=== PATIENT | female | born 1950 | race Caucasian/White ===

== ENCOUNTER 2019-11-20 08:38 | Outpatient (CLI) | payer MEDICARE, BC, SELFPAY ==
--- NOTE | 2019-11-20 08:48 | MM_ITS ---
WS: [id number] BILATERAL DIGITAL SCREENING MAMMOGRAPHY WITH CAD CLINICAL INFORMATION: SCREENING HISTORY: Screening mammogram. No current complaints. COMPARISON: 4 17,019 and 4 15,019. TECHNIQUE: Bilateral CC and MLO views. FINDINGS: The breasts are composed of heterogeneous fibroglandular density tissue, which can limit the detectio n of small underlying mass lesions. Previously described lobulated intraductal papilloma left breast has been resected. Parenchymal scarring. No suspicious mass, asymmetry, calcifications, or architectu ral distortion. No evidence of malignancy. MM/[id number] IMPRESSION: BI-RADS: 2-Benign FOLLOW UP: 1 Year Follow-up Recommend return to annual screening mammography.
== END 2019-11-20 08:39 | disposition home or self-care (01) ==
LOC: RADSHAW 08:43
PROVIDERS: PCP Family Medicine; Visit Provider Family Medicine
DX: Z12.31 Encounter for screening mammogram for malignant neoplasm of breast (principal)
CPT/HCPCS: 77067

== ENCOUNTER 2020-11-25 07:37 | Outpatient (CLI) | payer MEDICARE, BC, SELFPAY ==
--- NOTE | 2020-11-25 07:44 | MM_ITS ---
WS: [id number] Bilateral screening digital mammogram, 11/25/2020 Clinical Data: SCREENING Comparison: 11/20/2019, 06/08/2018, 06/06/2018, 09/23/2010, 12/16/2006. Findings: The breast parenchymal pattern shows fibroglandular tissue. No spiculated masses or clustered calcifi cations are seen. There are no secondary signs of carcinoma. There are lymph nodes in both axilla. MM/[id number] Impression: 1. Negative bilateral mammogram unchanged. 2. Recommend annual screening mammograms. BIRADS: 1-Negative FOLLOW UP: 1 Year Follow-up The CAD furnace checker was used.
== END 2020-11-25 07:38 | disposition home or self-care (01) ==
LOC: RADSHAW 07:42
PROVIDERS: PCP Family Medicine; Visit Provider Family Medicine
DX: Z12.31 Encounter for screening mammogram for malignant neoplasm of breast (principal)
CPT/HCPCS: 77067

== ENCOUNTER 2021-02-08 06:35 | Emergency (ER) | payer MEDICARE, BC, SELFPAY ==
[2021-02-08 06:44] VITALS: BP 184/101; PULSE 100; RESP 18; TEMP 36.8; O2SAT 99; BMI 40.2
--- NOTE | 2021-02-08 07:10 | CTR_ITS ---
PROCEDURE INFORMATION: Exam: CT Maxillofacial Without Contrast Exam date and time: 02/08/2021 7:10 AM Age: 70 years old Clinical indication: Injury or trauma; Blunt trauma (contusions or hematomas); Nose; Patient HX: PT. Fall striking face on table; Additional info: Fall/deformity to nose TECHNIQUE: Imaging protocol: Computed tomography images of the face without contrast. Total images: 243 Radiation optimization: All CT scans at this facility use at least one of these dose optimization techniques: automated exposure control; mA and/or kV adjustment per patient size (includes targeted exams where dose is matched to clinical indication); or iterative reconstruction. COMPARISON: No relevant prior studies available. RADIATION DOSE METRICS: Total DLP (mGy-cm): 693.78 FINDINGS: Orbital cavity: Orbits are normal. Globes are unremarkable. Bones/joints: Bilateral nasal bone fractures with adjacent soft tissue swelling. Long-standing deviation of the nasal septum. Paranasal sinuses: Air-fluid levels present in the maxillary sinuses bilaterally and right sphenoid sinus. Soft tissues: Unremarkable. Other findings: Streak artifact from dental amalgam. CT/CT facial bones wo con* [id number] IMPRESSION: 1. Bilateral nasal bone fractures with adjacent soft tissue swelling. 2. Air-fluid levels present in the maxillary sinuses bilaterally and right sphenoid sinus.
[2021-02-08 07:11] VITALS: BP 184/101; PULSE 100; RESP 18; TEMP 36.8; O2SAT 99
--- NOTE | 2021-02-08 07:22 | W.ED.FALL ---
HPI - Fall General: Chief Complaint: Fall Stated Complaint: nosebleed Time Seen by Provider: 02/08/21 07:01 History of Present Illness: HPI Narrative: 70-year-old presents emergency room after a fall. She stumbled over her dog and the dog fell and hit her face on some furniture. Patient has small amount of bruising obvious deformity to the nose. She denies any difficulty breathing she had no loss of consciousness. She takes aspirin daily but no other anticoagulants. MD complaint: fall Onset (ago): minute(s) Fall from: standing Fall witnessed: no Place fall occurred: home Loss of consciousness: None Prolonged down time: no Symptoms prior to fall: none Context: tripped/slipped Associated symptoms-after fall: Denies abdominal pain, chest pain, confusion, difficulty walking, headache(s), hematuria, lightheadedness, neck pain, numbness, short of breath, vertigo or weakness Review of Systems Const: Denies: fever(s), chills, body aches, change in appetite, fatigue or malaise ENMT: Reports: nasal discharge and nasal congestion; Denies: throat pain or ear or mastoid pain Card: Denies: chest pain or lightheadedness Resp: Denies: dyspnea, productive cough or non-productive cough GI: Denies: abdominal pain : Denies: hematuria Musc: Denies: neck pain Skin/Breast: Denies: rash or pruritus Neuro: Denies: headache(s), difficulty walking, vertigo or confusion Physical Exam Const: COMMON NORMALS: no acute distress GENERAL APPEARANCE: cooperative and comfortable ORIENTATION/CONSCIOUSNESS: Yes awake, Yes oriented to person, Yes oriented to place and Yes oriented to time HENMT: COMMON NORMALS: normocephalic, atraumatic, hearing grossly normal bilaterally, external ears normal, EAC's normal and TM's normal bilaterally HEAD & SCALP: normocephalic and atraumatic EXTERNAL EAR: Yes external ears normal EXTERNAL AUDITORY CANAL: EAC's normal TYMPANIC MEMBRANE: TM's normal bilaterally OTHER: Obvious deformity of the nares. There is some blood-tinged tears particularly noted in the left eye. Eye: COMMON NORMALS: Equal, round and reactive pupils present, EOMs intact bilaterally, conjunctivae normal and no scleral icterus CONJUNCTIVA: Yes conjunctivae normal PUPIL: Yes Equal, round and reactive pupils present Neck/C-Spine: COMMON NORMALS: full ROM, no lymphadenopathy, supple and no JVD Resp: COMMON NORMALS: normal respiratory effort, No retractions, No use of accessory muscles and clear to auscultation bilaterally AUSCULTATION: clear to auscultation bilaterally Cardio: COMMON NORMALS: no JVD, regular rate, regular rhythm and No murmurs present (Cardio) RATE: regular rate RHYTHM: regular rhythm GI: COMMON NORMALS: Soft to palpation and No hepatosplenomegaly present AUSCULTATION: Yes normoactive bowel sounds PALPATION: Yes Soft to palpation, No Tenderness to palpation present (GI), No Guarding due to palpation present (GI) and Yes No hepatosplenomegaly present Extremity: COMMON NORMALS: normal to inspection, capillary refill normal, no clubbing, cyanosis or edema, no calf tenderness and no pedal edema Neuro: SENSORIUM/ORIENTATION: Yes oriented to person, Yes oriented to place and Yes oriented to time Skin: COMMON NORMALS: no rashes or lesions noted GENERAL SKIN EXAM: no rashes or lesions noted Course Vital Signs: Vital signs: Vital Signs Temperature 98.3 F 02/08/21 07:11 Pulse Rate 78 02/08/21 10:16 Respiratory Rate 16 02/08/21 09:12 Blood Pressure 184/101 02/08/21 07:11 Pulse Oximetry 99 02/08/21 10:16 MDM - Fall MDM Narrative: Medical decision making narrative: Pt is awake and alert with no other significant injuries. Discharge home with plans for followup with ENT next week. Return if there are further issues. Discharge Plan Discharge Patient Disposition: Home Clinical Impression: Fracture closed, nasal bone, Acute anterior epistaxis Condition: Stable Prescriptions: New Augmentin 875-125 mg tablet 1 tab PO BID Qty: 20 RF: 0 hydrocodone-acetaminophen 5-325 mg tablet 1 tab PO Q6H PRN (Reason: pain) Qty: 15 RF: 0 Discharge Orders: Discharge ED (Routine); Ordered 02/08/21 Ordered By: Jace Rausch Referrals: Mike Loza MD [Primary Care Provider] - Discharge Diet: Usual diet Discharge Activity: Resume usual activity Patient Instructions: Opioid Safety Activity Restrictions/Additional Instructions: Avoid blowing the nose. Applied topical antibiotic in the nares with a cotton swab twice daily. service desk manager will make arrangements for you to see the ear nose and throat doctor next week. Coding Level of Care Code ED Attendance Secretary for Chg Fwd Exam Comprehensive
[2021-02-08 07:49] VITALS: PULSE 83; RESP 18; O2SAT 95
[2021-02-08 09:12] VITALS: PULSE 75; RESP 16; O2SAT 96
[2021-02-08] MEDS: oxymetazoline 0.05% Nasal Spray 15 mL 2 SPRAY NOSTRIL-B (10:15)
[2021-02-08 10:16] VITALS: PULSE 78; O2SAT 99
== END 2021-02-08 10:17 | disposition home or self-care (01) ==
PROVIDERS: Emergency Provider Family Medicine; PCP Family Medicine
DX: S02.2XXA Fracture of nasal bones, initial encounter for closed fracture (principal); W01.0XXA Fall on same level from slipping, tripping and stumbling without subsequent striking against object, initial encounter; R04.0 Epistaxis
CPT/HCPCS: 70486; 96365; 99284

== ENCOUNTER 2021-05-29 11:12 | Outpatient (CLI) | payer MEDICARE, BC, SELFPAY ==
--- NOTE | 2021-05-29 11:33 | XR_ITS ---
WS: [id number] RIGHT SHOULDER: 3 VIEW(S) TECHNIQUE: Internal and external rotation with Y view. HISTORY: R SHOULDER PAIN COMPARISON: 05/16/2015 No fracture or dislocation or soft tissue abnormality. Mild narrowing of the AC joint. There are small hypertrophic osteophytes at the AC joint and around t he humeral head. No significant progression of degeneration since 05/16/2015. Scapula is intact. The a djacent ribs are intact. XR/XR shoulder RT min 2V* [id number] IMPRESSION: Mild stable degenerative changes at the glenohumeral joint and AC joint. No fractures are identified.
== END 2021-05-29 11:13 | disposition home or self-care (01) ==
LOC: RAD 11:23
PROVIDERS: PCP Family Medicine; Visit Provider Family Medicine
DX: M25.511 Pain in right shoulder (principal)
CPT/HCPCS: 73030

== ENCOUNTER 2021-11-08 18:24 | Emergency (ER) | payer MEDICARE, BC, SELFPAY ==
[2021-11-08 18:30] VITALS: BP 194/99; PULSE 85; RESP 14; TEMP 36.5; O2SAT 99; BMI 36.6
--- NOTE | 2021-11-08 19:10 | ED_ITS ---
HPI - Extremity Problem General: Chief complaint: Extremity Problem,Nontraumatic Stated complaint: left leg pain Time Seen by Provider: 11/08/21 18:57 History of Present Illness: 71-year-old female comes in today with a ulcer to the left lower extremity that she has been doctoring with Vaseline. Patient reports she is concerned due to increased redness and tenderness of the wound surrounding the ulcer. Patient has a chronic rash and swelling to bilateral lower extremities. Most likely patient has some peripheral vascular disease and some stasis dermatitis. Patient had seen Dr. Loza at 22 September and was given a dose of Depo-Medrol which help with patient's itching. Patient has been arranged to have a follow-up with dermatology per Dr. Loza. Patient came in today for concern of infection. Patient denies fever, nausea vomiting, or diabetes. Patient reports that she only gets high blood pressure when she is around doctors. Associated symptoms: Deny fever(s) Review of Systems Const: Denies: fever(s) Musc: Reports: extremity pain Skin/Breast: Reports: new lesions Physical Exam Const: COMMON NORMALS: alert HENMT: COMMON NORMALS: normocephalic HEAD & SCALP: normocephalic Neck/C-Spine: COMMON NORMALS: full ROM Resp: COMMON NORMALS: normal respiratory effort and clear to auscultation bilaterally AUSCULTATION: clear to auscultation bilaterally Extremity: LEFT LOWER EXTREMITY: Yes lower leg (Lateral 2 cm circular lesion with 4 cm of surrounding redness.) Left lower leg: Yes inspection, Yes palpation and Yes neurovascular exam Neuro: SENSORIUM/ORIENTATION: Yes alert Skin: WOUNDS: Yes wounds noted (Ulcer to the left lower extremity) Course Vital Signs: Vital signs: Vital Signs Temperature 97.7 F 11/08/21 18:30 Pulse Rate 85 11/08/21 18:30 Respiratory Rate 14 11/08/21 18:30 Blood Pressure 194/99 11/08/21 18:30 Pulse Oximetry 99 11/08/21 18:30 Oxygen Delivery Me thod 11/08/21 18:30 MDM - Extremity (Nontraumatic) Medical Decision Making Patient comes in for concerns of changes in a ulcer to the left lower extremity. Patient reported some increased redness around the wound with some tenderness. Patient has a chronic condition of swelling in bilateral lower extremities with redness at times and occasional development of skin ulcers. Patient usually is able to manage him at home but was concerned it may be infection. Vital signs noted no fever, blood pressure was elevated. Respirations were even lungs were clear to auscultation. Skin was warm and dry. Bilateral lower extremities were slightly edematous with the left being little worse than the right but with increased redness on the left with a coin sized ulcer. Differential diagnoses include cellulitis, peripheral vascular disease, vasculitis, claudication, diabetes. Patient has good pedal pulses. I suspect patient probably has some peripheral vascular disease causing the stasis dermatitis. We will treat for infection due to the changes in the ulcer with increased redness and swelling. Patient was given a dose of methylprednisone 80 mg due to good results the last time she got it about 2 months ago for the rash and itching. Patient reported understanding and agreed to plan with need to come back for worsening symptoms such as high fever, persistent nausea and vomiting, or new concerns. Discharge Plan Discharge Patient Disposition: Home Clinical Impression: Stasis dermatitis of both legs, Infected wound Condition: Stable Prescriptions: New amoxicillin-pot clavulanate 875-125 mg tablet 1 tab PO BID Qty: 14 0RF No Action famotidine 20 mg tablet 20 mg PO BID mupirocin 2 % ointment 1 applic topical TID Qty: 22 0RF hydrocodone-acetaminophen 5-325 mg tablet 1 tab PO Q6H PRN (Reason: pain) Qty: 15 0RF Discharge Orders: Discharge ED (Routine); Ordered 11/08/21 Ordered By: Jesu Montano Referrals: Mike Loza MD [Primary Care Provider] - Discharge Diet: Usual diet Discharge Activity: Increase activity as tolerated Patient Instructions: Stasis Dermatitis (ED) Activity Restrictions/Additional Instructions: Take antibiotic as directed 1 tablet twice a day for 7 days. Use antibiotic ointment to the wound. Elevate extremity is much as possible. Use compression stockings or wraps to help with swelling control. Follow-up with primary care in 3 to 5 days for recheck. Return to ER for high fever greater than 100.4, increasing redness and swelling, or new concerns. 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
[2021-11-08] MEDS: methylPREDNISolone (DEPO) 80 MG/ML INJ 1 mL IM (19:16)
[2021-11-08] MEDS: amoxicillin-clav 875-125 mg Tablet 1 TAB PO (19:16)
[2021-11-08] MEDS: mupirocin oint 22 gm 1 APPLIC TOPICAL (19:17)
== END 2021-11-08 19:27 | disposition home or self-care (01) ==
PROVIDERS: Emergency Provider Nurse Practitioner Family; PCP Family Medicine
DX: I87.2 Venous insufficiency (chronic) (peripheral) (principal); L97.921 Non-pressure chronic ulcer of unspecified part of left lower leg limited to breakdown of skin; L08.9 Local infection of the skin and subcutaneous tissue, unspecified
CPT/HCPCS: 96372; 99284; J1040

== ENCOUNTER → 2021-11-25 08:16 | Outpatient (BNVA) | payer MEDICARE, BC, SELFPAY | PROVIDERS: PCP Family Medicine; Visit Provider Nurse Practitioner Family | DX: I96 Gangrene, not elsewhere classified (principal); L97.822 Non-pressure chronic ulcer of other part of left lower leg with fat layer exposed | CPT/HCPCS: 11042; 99213; A6021 ==

== ENCOUNTER → 2021-11-28 09:52 | Outpatient (BNVA) | payer MEDICARE, BC, SELFPAY | PROVIDERS: PCP Family Medicine; Visit Provider Nurse Practitioner Family | DX: I87.2 Venous insufficiency (chronic) (peripheral) (principal); L97.822 Non-pressure chronic ulcer of other part of left lower leg with fat layer exposed | CPT/HCPCS: 29581 ==

== ENCOUNTER → 2021-12-02 13:07 | Outpatient (BNVA) | payer MEDICARE, BC, SELFPAY | PROVIDERS: PCP Family Medicine; Visit Provider Nurse Practitioner Family | DX: I96 Gangrene, not elsewhere classified (principal); I87.2 Venous insufficiency (chronic) (peripheral); L97.822 Non-pressure chronic ulcer of other part of left lower leg with fat layer exposed | CPT/HCPCS: 11042 ==

== ENCOUNTER 2021-12-03 09:33 | Outpatient (CLI) | payer MEDICARE, BC, SELFPAY ==
--- NOTE | 2021-12-03 09:46 | MM_ITS ---
WS: [id number] DIAGNOSTIC BILATERAL DIGITAL BREAST TOMOSYNTHESIS MAMMOGRAPHY WITH CAD HISTORY: Annual evaluation. History of LEFT breast cancer. COMPARISON: None available. TECHNIQUE: Bilateral craniocaudad, mediolateral oblique, and mediolateral views are submitted with to mospaige and SM. Computer aided detection utilized. Breast composition: There are scattered areas of fibroglandular density. No suspicious masses or calc ifications. MM/[place] [id number] IMPRESSION: BI-RADS: 2-Benign FOLLOW UP: 1 Year Follow-up
== END 2021-12-03 09:34 | disposition home or self-care (01) ==
LOC: RAD 09:33
PROVIDERS: PCP Family Medicine; Visit Provider Family Medicine
DX: Z85.3 Personal history of malignant neoplasm of breast (principal)
CPT/HCPCS: 77062; 77063; 77067

== ENCOUNTER 2021-12-05 14:51 | Outpatient (CLI) | payer MEDICARE, BC, SELFPAY ==
--- NOTE | 2021-12-05 15:15 | USCV_ITS ---
LE Venous Insufficiency BILATERAL Miri Matos Age: 71 Gender: F : 1950 Exam Date: 12/05/2021 15:08 Ordering Phys: Dayanara Warren Technologist: JEB [place] [facility] [place]: H[place]ORY: Ulcers. PROCEDURES: Bilateral duplex Venous Insufficiency study of the Deep and Superficial systems was carried out according to normal protocol with the patient in supine positon for deep system and dependent position for the superficial system. FINDINGS: There is no evidence of RIGHT deep vein thrombosis. No evidence of superficial thrombosis in the RIGHT saphenous system. The RIGHT SFJ measured .75CM cm in diameter. There was no venous reflux noted in the RIGHT SFJ. The RIGHT GSV measured .6CM cm in diameter in the proximal thigh immediately distal to the SFJ. Venous reflux is demonstrated in the RIGHT greater saphenous vein with a spectral Doppler display of greater than 500 milliseconds at the level of the. No RIGHT perforating veins are noted. The RIGHT SSV measured .2CM cm in diameter, in the proximal calf immediately distal to the SPJ/thigh extension vein. Venous reflux is demonstrated in the RIGHT small saphenous vein with a spectral Doppler display of greater than 500 mlsec at the level of the proximal calf. There is no evidence of LEFT deep vein thrombosis. No evidence of superficial thrombosis in the LEFT saphenous system. Reflux is demonstrated in the deep venous system at the level of the LEFT. The LEFT SFJ measured .58CM cm in diameter. There was no venous reflux noted in the LEFT SFJ. The LEFT GSV measured .55CM cm in diameter in the proximal thigh immediately distal to the SFJ. Venous reflux is demonstrated in the LEFT greater saphenous vein with a spectral Doppler display of greater than 500 milliseconds at the level of the. No LEFT perforating veins are noted. The LEFT SSV measured .25CM cm in diameter, in the proximal calf immediately distal to the SPJ/thigh extension vein. No venous reflux noted in the LEFT small saphenous vein. CONCLUSIONS #1. No evidence of DVT in the above-mentioned identifiable veins. #2. On the right side, significant venous reflux of greater than 500 ms were noted at the saphenofemoral junction, distal to the saphenofemoral junction, proximal and mid segment of the greater saphenous vein. These venous segments are found to be measuring anywhere from 0.43 to 0.75 cm in diameter. These venous segments were more than 1 cm from the surface except the greater saphenous vein distal to the saphenofemoral junction which was less than 1 cm deep from the surface. #3. On the left side no significant venous reflux were noted either in the superficial or deep veins. Minimal reflux of less than 500 ms were noted at multiple levels. Dr Sofia Sharp MD [facility] (Electronically Signed) Final Date: 10 December 2021 00:02 S
== END 2021-12-05 14:52 | disposition home or self-care (01) ==
LOC: RAD 14:52
PROVIDERS: PCP Family Medicine; Visit Provider Nurse Practitioner Family
DX: L98.491 Non-pressure chronic ulcer of skin of other sites limited to breakdown of skin (principal); I87.8 Other specified disorders of veins
CPT/HCPCS: 93970

== ENCOUNTER → 2021-12-09 10:31 | Outpatient (BNVA) | payer MEDICARE, BC, SELFPAY | PROVIDERS: PCP Family Medicine; Visit Provider Nurse Practitioner Family | DX: I96 Gangrene, not elsewhere classified (principal); I87.2 Venous insufficiency (chronic) (peripheral); L97.822 Non-pressure chronic ulcer of other part of left lower leg with fat layer exposed | CPT/HCPCS: 11042 ==

== ENCOUNTER 2021-12-12 14:09 | Outpatient (CLI) | payer MEDICARE, BC, SELFPAY ==
--- NOTE | 2021-12-12 14:30 | USCV_ITS ---
Miri Matos Age: 71 Gender: F : 1950 Exam Date: 12/12/2021 14:19 Ordering Phys: Dayanara Warren Technologist: CT Exam Location: [facility] – [place] Indication: pvd Risk Factors: Previous Vascular Surgery: RIGHT LEFT BP: 131.0 / 80.00 BP: 121.0/ 77.00 0 0 Waveform Velocity (cm/s) Velocity (cm/s) Waveform Triphasic 103.8 Iliac Prox 93.0 Triphasic Triphasic 93.2 Iliac Mid 97.3 Triphasic Triphasic 93.5 Iliac Distal 92.1 Triphasic Triphasic 115.0 PILOT 117.2 Triphasic Triphasic 97.9 SFA Prox 95.6 Triphasic Triphasic 78.0 SFA Mid 92.9 Triphasic Triphasic SFA Dist Triphasic 79.2 86.5 Triphasic 54.9 POP 60.3 Triphasic Triphasic 83.6 PRODUCTION SPECIALIST 97.2 Triphasic Triphasic 80.7 DPA 61.2 Triphasic 1.2 BRANDON 1.1 FINDINGS Intimal thickening and scattered minimal plaques in the iliac and femoral arteries bilaterally Resting BRANDON 1.2 on the right and 1.1 on the left Normal arterial Doppler waveforms CONCLUSIONS 1. Normal resting ABIs bilaterally 2. Intimal thickening and minimal scattered plaques in the iliac and femoral arteries bilaterally 3. No significant arterial obstruction, based on the above findings Dr Sofia Sharp MD [facility] (Electronically Signed) Final Date: 12 December 2021 16:32 S
== END 2021-12-12 14:10 | disposition home or self-care (01) ==
LOC: RAD 14:09
PROVIDERS: PCP Family Medicine; Visit Provider Nurse Practitioner Family
DX: L98.491 Non-pressure chronic ulcer of skin of other sites limited to breakdown of skin (principal); R52 Pain, unspecified; I73.9 Peripheral vascular disease, unspecified
CPT/HCPCS: 93925

== ENCOUNTER → 2021-12-16 10:42 | Outpatient (BNVA) | payer MEDICARE, BC, SELFPAY | PROVIDERS: PCP Family Medicine; Visit Provider Nurse Practitioner Family | DX: I96 Gangrene, not elsewhere classified (principal); I87.2 Venous insufficiency (chronic) (peripheral); L97.822 Non-pressure chronic ulcer of other part of left lower leg with fat layer exposed | CPT/HCPCS: 11042 ==

== ENCOUNTER → 2021-12-23 10:46 | Outpatient (BNVA) | payer MEDICARE, BC, SELFPAY | PROVIDERS: PCP Family Medicine; Visit Provider Nurse Practitioner Family | DX: I96 Gangrene, not elsewhere classified (principal); I87.2 Venous insufficiency (chronic) (peripheral); L97.822 Non-pressure chronic ulcer of other part of left lower leg with fat layer exposed | CPT/HCPCS: 97597 ==

== ENCOUNTER → 2021-12-30 10:36 | Outpatient (BNVA) | payer MEDICARE, BC, SELFPAY | PROVIDERS: PCP Family Medicine; Visit Provider Nurse Practitioner Family | DX: I96 Gangrene, not elsewhere classified (principal); I87.2 Venous insufficiency (chronic) (peripheral); L97.822 Non-pressure chronic ulcer of other part of left lower leg with fat layer exposed | CPT/HCPCS: 11042; 87070; 87077; 87176; 87186; 87205 ==

== ENCOUNTER → 2022-01-06 10:46 | Outpatient (BNVA) | payer MEDICARE, BC, SELFPAY | PROVIDERS: PCP Family Medicine; Visit Provider Nurse Practitioner Family | DX: I96 Gangrene, not elsewhere classified (principal); I87.2 Venous insufficiency (chronic) (peripheral); L97.822 Non-pressure chronic ulcer of other part of left lower leg with fat layer exposed | CPT/HCPCS: 11042; A6212 ==

== ENCOUNTER → 2022-01-20 10:46 | Outpatient (BNVA) | payer MEDICARE, BC, SELFPAY | PROVIDERS: PCP Family Medicine; Visit Provider Nurse Practitioner Family | DX: I96 Gangrene, not elsewhere classified (principal); I87.2 Venous insufficiency (chronic) (peripheral); L97.822 Non-pressure chronic ulcer of other part of left lower leg with fat layer exposed | CPT/HCPCS: 15271; A6446; Q4186 ==

== ENCOUNTER → 2022-01-27 10:53 | Outpatient (BNVA) | payer MEDICARE, BC, SELFPAY | PROVIDERS: PCP Family Medicine; Visit Provider Nurse Practitioner Family | DX: I96 Gangrene, not elsewhere classified (principal); I87.2 Venous insufficiency (chronic) (peripheral); L97.822 Non-pressure chronic ulcer of other part of left lower leg with fat layer exposed | CPT/HCPCS: 15271; A6207; A6250; A6252; Q4205 ==

== ENCOUNTER → 2022-02-03 10:56 | Outpatient (BNVA) | payer MEDICARE, BC, SELFPAY | PROVIDERS: PCP Family Medicine; Visit Provider Thoracic Surgery (Cardiothoracic Vascular Surgery) | DX: I87.2 Venous insufficiency (chronic) (peripheral) (principal); I96 Gangrene, not elsewhere classified; L97.822 Non-pressure chronic ulcer of other part of left lower leg with fat layer exposed | CPT/HCPCS: 15275; A6021; A6206; A6250; Q4205 ==

== ENCOUNTER → 2022-02-10 10:50 | Outpatient (BNVA) | payer MEDICARE, BC, SELFPAY | PROVIDERS: PCP Family Medicine; Visit Provider Thoracic Surgery (Cardiothoracic Vascular Surgery) | DX: I96 Gangrene, not elsewhere classified (principal); I87.2 Venous insufficiency (chronic) (peripheral); L97.822 Non-pressure chronic ulcer of other part of left lower leg with fat layer exposed | CPT/HCPCS: 97597 ==

== ENCOUNTER → 2022-02-24 10:54 | Outpatient (BNVA) | payer MEDICARE, BC, SELFPAY | PROVIDERS: PCP Family Medicine; Visit Provider Thoracic Surgery (Cardiothoracic Vascular Surgery) | DX: I96 Gangrene, not elsewhere classified (principal); I87.2 Venous insufficiency (chronic) (peripheral); L97.822 Non-pressure chronic ulcer of other part of left lower leg with fat layer exposed | CPT/HCPCS: 97597 ==

== ENCOUNTER → 2022-03-09 11:17 | Outpatient (BNVA) | payer MEDICARE, BC, SELFPAY | PROVIDERS: PCP Family Medicine; Visit Provider Thoracic Surgery (Cardiothoracic Vascular Surgery) | DX: I96 Gangrene, not elsewhere classified (principal); I87.2 Venous insufficiency (chronic) (peripheral); L97.822 Non-pressure chronic ulcer of other part of left lower leg with fat layer exposed | CPT/HCPCS: 97597; A6212 ==

== ENCOUNTER → 2022-03-23 10:13 | Outpatient (BNVA) | payer MEDICARE, BC, SELFPAY | PROVIDERS: PCP Family Medicine; Visit Provider Thoracic Surgery (Cardiothoracic Vascular Surgery) | DX: I96 Gangrene, not elsewhere classified (principal); I87.2 Venous insufficiency (chronic) (peripheral); L97.822 Non-pressure chronic ulcer of other part of left lower leg with fat layer exposed | CPT/HCPCS: 99212; A6212 ==

== ENCOUNTER → 2022-03-30 10:53 | Outpatient (BNVA) | payer MEDICARE, BC, SELFPAY | PROVIDERS: PCP Family Medicine; Visit Provider Thoracic Surgery (Cardiothoracic Vascular Surgery) | DX: Z09 Encounter for follow-up examination after completed treatment for conditions other than malignant neoplasm (principal) | CPT/HCPCS: 99212 ==

== ENCOUNTER → 2022-09-01 11:10 | Outpatient (BNVA) | payer MEDICARE, BC, SELFPAY | PROVIDERS: PCP Family Medicine; Visit Provider Nurse Practitioner Family | DX: L57.0 Actinic keratosis (principal); L97.829 Non-pressure chronic ulcer of other part of left lower leg with unspecified severity; L81.4 Other melanin hyperpigmentation; D22.5 Melanocytic nevi of trunk; Z71.89 Other specified counseling; L85.3 Xerosis cutis | CPT/HCPCS: 17000; 17003; 99213 ==

== ENCOUNTER → 2022-09-15 11:18 | Outpatient (BNVA) | payer MEDICARE, BC, SELFPAY | PROVIDERS: PCP Family Medicine; Visit Provider Obstetrics & Gynecology | DX: N81.89 Other female genital prolapse (principal) | CPT/HCPCS: 76830; 76856 ==

== ENCOUNTER → 2023-01-04 11:31 | Outpatient (BNVA) | payer MEDICARE, BC, SELFPAY | PROVIDERS: PCP Family Medicine; Visit Provider Nurse Practitioner Family | DX: I83.009 Varicose veins of unspecified lower extremity with ulcer of unspecified site (principal); L97.829 Non-pressure chronic ulcer of other part of left lower leg with unspecified severity; L97.319 Non-pressure chronic ulcer of right ankle with unspecified severity; I87.2 Venous insufficiency (chronic) (peripheral); L57.8 Other skin changes due to chronic exposure to nonionizing radiation; L81.4 Other melanin hyperpigmentation; L03.116 Cellulitis of left lower limb; L03.115 Cellulitis of right lower limb | CPT/HCPCS: 77062; 99214; G0279 ==

== ENCOUNTER → 2023-01-12 13:46 | Outpatient (BNVA) | payer MEDICARE, BC, SELFPAY | PROVIDERS: PCP Family Medicine; Visit Provider Thoracic Surgery (Cardiothoracic Vascular Surgery) | DX: I96 Gangrene, not elsewhere classified (principal); L97.312 Non-pressure chronic ulcer of right ankle with fat layer exposed; L97.322 Non-pressure chronic ulcer of left ankle with fat layer exposed | CPT/HCPCS: 11042; 97597; 99213 ==

== ENCOUNTER → 2023-01-19 14:14 | Outpatient (BNVA) | payer MEDICARE, BC, SELFPAY | PROVIDERS: PCP Family Medicine; Visit Provider Nurse Practitioner Family | DX: I96 Gangrene, not elsewhere classified (principal); L97.312 Non-pressure chronic ulcer of right ankle with fat layer exposed; L97.322 Non-pressure chronic ulcer of left ankle with fat layer exposed | CPT/HCPCS: 97597 ==

== ENCOUNTER → 2023-01-26 13:32 | Outpatient (BNVA) | payer MEDICARE, BC, SELFPAY | PROVIDERS: PCP Family Medicine; Visit Provider Nurse Practitioner Family | DX: I96 Gangrene, not elsewhere classified (principal); L89.512 Pressure ulcer of right ankle, stage 2; L89.522 Pressure ulcer of left ankle, stage 2 | CPT/HCPCS: 11042; 87070; 87077; 87176; 87186; 87205; 99212 ==

== ENCOUNTER → 2023-02-02 13:41 | Outpatient (BNVA) | payer MEDICARE, BC, SELFPAY | PROVIDERS: PCP Family Medicine; Visit Provider Nurse Practitioner Family | DX: I96 Gangrene, not elsewhere classified (principal); I87.2 Venous insufficiency (chronic) (peripheral); L97.311 Non-pressure chronic ulcer of right ankle limited to breakdown of skin; L97.321 Non-pressure chronic ulcer of left ankle limited to breakdown of skin | CPT/HCPCS: 97597; 99213; A6210 ==

== ENCOUNTER → 2023-02-09 14:50 | Outpatient (BNVA) | payer MEDICARE, BC, SELFPAY | PROVIDERS: PCP Family Medicine; Visit Provider Thoracic Surgery (Cardiothoracic Vascular Surgery) | DX: I96 Gangrene, not elsewhere classified (principal); I87.2 Venous insufficiency (chronic) (peripheral); L97.311 Non-pressure chronic ulcer of right ankle limited to breakdown of skin; L97.321 Non-pressure chronic ulcer of left ankle limited to breakdown of skin | CPT/HCPCS: 97597; A6210; A6248 ==

== ENCOUNTER → 2023-02-16 15:20 | Outpatient (BNVA) | payer MEDICARE, BC, SELFPAY | PROVIDERS: PCP Family Medicine; Visit Provider Nurse Practitioner Family | DX: I96 Gangrene, not elsewhere classified (principal); I87.2 Venous insufficiency (chronic) (peripheral); L97.311 Non-pressure chronic ulcer of right ankle limited to breakdown of skin; L97.321 Non-pressure chronic ulcer of left ankle limited to breakdown of skin | CPT/HCPCS: 97597; A6210 ==

== ENCOUNTER → 2023-02-23 15:02 | Outpatient (BNVA) | payer MEDICARE, BC, SELFPAY | PROVIDERS: PCP Family Medicine; Visit Provider Nurse Practitioner Family | DX: I96 Gangrene, not elsewhere classified (principal); I87.2 Venous insufficiency (chronic) (peripheral); L97.311 Non-pressure chronic ulcer of right ankle limited to breakdown of skin; L97.321 Non-pressure chronic ulcer of left ankle limited to breakdown of skin | CPT/HCPCS: 97597; A6210 ==

== ENCOUNTER 2023-02-25 11:54 | Outpatient (CLI) | payer MEDICARE, BC, SELFPAY ==
--- NOTE | 2023-02-25 12:15 | US_ITS ---
WS: [id number] ULTRASOUND SOFT TISSUES RIGHT posterior thorax. HISTORY: soft tissue growth on back COMPARISON: None available. TECHNIQUE: 2-D and color Doppler imaging is submitted. Ultrasound is directed over the RIGHT upper thorax near the scapula in the area of concern. There is an elongated area of intermediate echogenicity measuring 1.1 x 6.3 cm which is probably a small lipom a. This is nearly isoechoic to the adjacent soft tissues. No increased vascularity. This is asymmetri c to the LEFT upper thorax. IMPRESSION: Elongated intermediate hypoechoic mass corresponds to the palpable abnormality and is probably a lipo ma.
== END 2023-02-25 11:55 | disposition home or self-care (01) ==
LOC: RAD 11:55
PROVIDERS: PCP Family Medicine; Visit Provider Clinical Nurse Specialist Adult Health
DX: D17.1 Benign lipomatous neoplasm of skin and subcutaneous tissue of trunk (principal); D49.2 Neoplasm of unspecified behavior of bone, soft tissue, and skin
CPT/HCPCS: 76882

== ENCOUNTER → 2023-03-02 13:48 | Outpatient (BNVA) | payer MEDICARE, BC, SELFPAY | PROVIDERS: PCP Family Medicine; Visit Provider Nurse Practitioner Family | DX: I96 Gangrene, not elsewhere classified (principal); I87.2 Venous insufficiency (chronic) (peripheral); L97.311 Non-pressure chronic ulcer of right ankle limited to breakdown of skin; L97.321 Non-pressure chronic ulcer of left ankle limited to breakdown of skin | CPT/HCPCS: 97597; A6210 ==

== ENCOUNTER → 2023-03-09 13:30 | Outpatient (BNVA) | payer MEDICARE, BC, SELFPAY | PROVIDERS: PCP Family Medicine; Visit Provider Nurse Practitioner Family | DX: I96 Gangrene, not elsewhere classified (principal); I87.2 Venous insufficiency (chronic) (peripheral); L97.311 Non-pressure chronic ulcer of right ankle limited to breakdown of skin; L97.321 Non-pressure chronic ulcer of left ankle limited to breakdown of skin | CPT/HCPCS: 97597 ==

== ENCOUNTER → 2023-03-16 11:00 | Outpatient (BNVA) | payer MEDICARE, BC, SELFPAY | PROVIDERS: PCP Family Medicine; Visit Provider Nurse Practitioner Family | DX: I96 Gangrene, not elsewhere classified (principal); I87.2 Venous insufficiency (chronic) (peripheral); L97.311 Non-pressure chronic ulcer of right ankle limited to breakdown of skin; L97.321 Non-pressure chronic ulcer of left ankle limited to breakdown of skin | CPT/HCPCS: 97597 ==

== ENCOUNTER → 2023-03-23 10:03 | Outpatient (BNVA) | payer MEDICARE, BC, SELFPAY | PROVIDERS: PCP Family Medicine; Visit Provider Nurse Practitioner Family | DX: I96 Gangrene, not elsewhere classified (principal); I87.2 Venous insufficiency (chronic) (peripheral); L97.311 Non-pressure chronic ulcer of right ankle limited to breakdown of skin; L97.321 Non-pressure chronic ulcer of left ankle limited to breakdown of skin | CPT/HCPCS: 97597 ==

== ENCOUNTER → 2023-03-29 09:54 | Outpatient (BNVA) | payer MEDICARE, BC, SELFPAY | PROVIDERS: PCP Family Medicine; Visit Provider Nurse Practitioner Family | DX: I96 Gangrene, not elsewhere classified (principal); I87.2 Venous insufficiency (chronic) (peripheral); L97.311 Non-pressure chronic ulcer of right ankle limited to breakdown of skin; L97.321 Non-pressure chronic ulcer of left ankle limited to breakdown of skin | CPT/HCPCS: 97597; A6212 ==

== ENCOUNTER → 2023-04-12 10:28 | Outpatient (BNVA) | payer MEDICARE, BC, SELFPAY | PROVIDERS: PCP Family Medicine; Visit Provider Nurse Practitioner Family | DX: I96 Gangrene, not elsewhere classified (principal); I87.2 Venous insufficiency (chronic) (peripheral); L97.311 Non-pressure chronic ulcer of right ankle limited to breakdown of skin; L97.321 Non-pressure chronic ulcer of left ankle limited to breakdown of skin | CPT/HCPCS: 97597 ==

== ENCOUNTER → 2023-04-19 10:40 | Outpatient (BNVA) | payer MEDICARE, BC, SELFPAY | PROVIDERS: PCP Family Medicine; Visit Provider Nurse Practitioner Family | DX: I96 Gangrene, not elsewhere classified (principal); I87.2 Venous insufficiency (chronic) (peripheral); L97.321 Non-pressure chronic ulcer of left ankle limited to breakdown of skin; Z09 Encounter for follow-up examination after completed treatment for conditions other than malignant neoplasm | CPT/HCPCS: 97597 ==

== ENCOUNTER → 2023-04-26 10:48 | Outpatient (BNVA) | payer MEDICARE, BC, SELFPAY | PROVIDERS: PCP Family Medicine; Visit Provider Nurse Practitioner Family | DX: I96 Gangrene, not elsewhere classified (principal); I87.2 Venous insufficiency (chronic) (peripheral); L97.421 Non-pressure chronic ulcer of left heel and midfoot limited to breakdown of skin | CPT/HCPCS: 97597 ==

== ENCOUNTER → 2023-05-03 12:48 | Outpatient (BNVA) | payer MEDICARE, BC, SELFPAY | PROVIDERS: PCP Family Medicine; Visit Provider Nurse Practitioner Family | DX: I96 Gangrene, not elsewhere classified (principal); I87.2 Venous insufficiency (chronic) (peripheral); L97.321 Non-pressure chronic ulcer of left ankle limited to breakdown of skin | CPT/HCPCS: 97597 ==

== ENCOUNTER → 2023-05-10 10:47 | Outpatient (BNVA) | payer MEDICARE, BC, SELFPAY | PROVIDERS: PCP Family Medicine; Visit Provider Nurse Practitioner Family | DX: I96 Gangrene, not elsewhere classified (principal); I87.2 Venous insufficiency (chronic) (peripheral); L97.321 Non-pressure chronic ulcer of left ankle limited to breakdown of skin | CPT/HCPCS: 97597; A6021; A6212 ==

== ENCOUNTER → 2023-05-17 10:26 | Outpatient (BNVA) | payer MEDICARE, BC, SELFPAY | PROVIDERS: PCP Family Medicine; Visit Provider Nurse Practitioner Family | DX: I87.2 Venous insufficiency (chronic) (peripheral) (principal); L97.421 Non-pressure chronic ulcer of left heel and midfoot limited to breakdown of skin | CPT/HCPCS: 97597; A6021; A6219 ==

== ENCOUNTER → 2023-05-24 10:32 | Outpatient (BNVA) | payer MEDICARE, BC, SELFPAY | PROVIDERS: PCP Family Medicine; Visit Provider Nurse Practitioner Family | DX: I96 Gangrene, not elsewhere classified (principal); I87.2 Venous insufficiency (chronic) (peripheral); L97.321 Non-pressure chronic ulcer of left ankle limited to breakdown of skin | CPT/HCPCS: 97597; A6021 ==

== ENCOUNTER → 2023-06-07 10:02 | Outpatient (BNVA) | payer MEDICARE, BC, SELFPAY | PROVIDERS: PCP Family Medicine; Visit Provider Nurse Practitioner Family | DX: I96 Gangrene, not elsewhere classified (principal); I87.2 Venous insufficiency (chronic) (peripheral); L97.321 Non-pressure chronic ulcer of left ankle limited to breakdown of skin | CPT/HCPCS: 97597; A6021 ==

== ENCOUNTER → 2023-06-14 09:54 | Outpatient (BNVA) | payer MEDICARE, BC, SELFPAY | PROVIDERS: PCP Family Medicine; Visit Provider Nurse Practitioner Family | DX: I87.2 Venous insufficiency (chronic) (peripheral) (principal); L97.321 Non-pressure chronic ulcer of left ankle limited to breakdown of skin; S91.012D Laceration without foreign body, left ankle, subsequent encounter; X58.XXXD Exposure to other specified factors, subsequent encounter | CPT/HCPCS: 97597 ==

== ENCOUNTER → 2023-06-21 12:55 | Outpatient (BNVA) | payer MEDICARE, BC, SELFPAY | PROVIDERS: PCP Family Medicine; Visit Provider Nurse Practitioner Family | DX: I87.2 Venous insufficiency (chronic) (peripheral) (principal); L97.321 Non-pressure chronic ulcer of left ankle limited to breakdown of skin; S91.012A Laceration without foreign body, left ankle, initial encounter; X58.XXXA Exposure to other specified factors, initial encounter; L97.821 Non-pressure chronic ulcer of other part of left lower leg limited to breakdown of skin | CPT/HCPCS: 97597; A6021 ==

== ENCOUNTER → 2023-06-23 14:15 | Outpatient (BNVA) | payer MEDICARE, BC, SELFPAY | PROVIDERS: PCP Family Medicine; Visit Provider Thoracic Surgery (Cardiothoracic Vascular Surgery) | DX: I87.2 Venous insufficiency (chronic) (peripheral) (principal) | CPT/HCPCS: 29581; A6021 ==

== ENCOUNTER → 2023-06-24 09:42 | Outpatient (BNVA) | payer MEDICARE, BC, SELFPAY | PROVIDERS: PCP Family Medicine; Visit Provider Family Medicine | DX: Z00.00 Encounter for general adult medical examination without abnormal findings (principal); E11.9 Type 2 diabetes mellitus without complications | CPT/HCPCS: 80053; 80061; 83036; 84443; 85025 ==

== ENCOUNTER → 2023-06-28 10:42 | Outpatient (BNVA) | payer MEDICARE, BC, SELFPAY | PROVIDERS: PCP Family Medicine; Visit Provider Nurse Practitioner Family | DX: I87.2 Venous insufficiency (chronic) (peripheral) (principal); L97.321 Non-pressure chronic ulcer of left ankle limited to breakdown of skin; L97.821 Non-pressure chronic ulcer of other part of left lower leg limited to breakdown of skin; Z09 Encounter for follow-up examination after completed treatment for conditions other than malignant neoplasm | CPT/HCPCS: 97597; A6021; A6252 ==

== ENCOUNTER → 2023-07-05 08:50 | Outpatient (BNVA) | payer MEDICARE, BC, SELFPAY | PROVIDERS: PCP Family Medicine; Referring Provider Family Medicine; Visit Provider Surgery | DX: K21.9 Gastro-esophageal reflux disease without esophagitis (principal); I87.2 Venous insufficiency (chronic) (peripheral); L97.821 Non-pressure chronic ulcer of other part of left lower leg limited to breakdown of skin; Z80.0 Family history of malignant neoplasm of digestive organs | CPT/HCPCS: 97597; 99204 ==

== ENCOUNTER → 2023-07-12 10:43 | Outpatient (BNVA) | payer MEDICARE, BC, SELFPAY | PROVIDERS: PCP Family Medicine; Visit Provider Nurse Practitioner Family | DX: I87.2 Venous insufficiency (chronic) (peripheral) (principal); L97.821 Non-pressure chronic ulcer of other part of left lower leg limited to breakdown of skin | CPT/HCPCS: 97597 ==

== ENCOUNTER → 2023-07-26 10:11 | Outpatient (BNVA) | payer MEDICARE, BC, SELFPAY | PROVIDERS: PCP Family Medicine; Visit Provider Nurse Practitioner Family | DX: I87.2 Venous insufficiency (chronic) (peripheral) (principal); L97.821 Non-pressure chronic ulcer of other part of left lower leg limited to breakdown of skin | CPT/HCPCS: 97597 ==

== ENCOUNTER → 2023-08-02 10:33 | Outpatient (BNVA) | payer MEDICARE, BC, SELFPAY | PROVIDERS: PCP Family Medicine; Visit Provider Nurse Practitioner Family | DX: Z09 Encounter for follow-up examination after completed treatment for conditions other than malignant neoplasm (principal); Z87.2 Personal history of diseases of the skin and subcutaneous tissue | CPT/HCPCS: 99213 ==

== ENCOUNTER 2023-08-11 06:44 | Day surgery (SDC) | payer MEDICARE, BC, SELFPAY ==
[2023-08-11 07:05] VITALS: BP 162/93; PULSE 79; RESP 18; TEMP 36.6; O2SAT 100; BMI 34.7
[2023-08-11] MEDS: sodium chloride 0.9% 1,000 ML 30 ML IV (07:12)
--- NOTE | 2023-08-11 07:37 | ANES.PREANE2 ---
Pre-Anesthetic Assessment Height/Weight: Height 1.57 m Weight 86.183 kg Temp Pulse Resp BP Pulse Ox O2 Del Method 97.9 F 79 18 162/93 100 Room Air 08/11/23 07:05 08/11/23 07:05 08/11/23 07:05 08/11/23 07:05 08/11/23 07:05 08/11/23 07:05 Operation Date: 08/11/23 08:00 Proposed Procedures p EGD 44833, [id number], G0105,Z80.0 , K21.9(Not Applicable) - Charlie Chong DO s Colonoscopy(Not Applicable) - Charlie Chong DO Was Beta Carol taken within 24 hours: N/A Was Clonidine taken within 24 hours: N/A Last intake: Intake Last Liquid Date 08/10/23 Last Liquid Time 20:45 Last Solid Date 08/09/23 Last Solid Time 18:00 Social No alcohol and No tobacco Exam alert, oriented x 3, clear to auscultation bilaterally and regular rate & rhythm Airway Submandibular: within normal limits Cervical ROM: within normal limits Mallampati: Class I Comments: Comments: bottom teeth, upper denture removed. denies loose but appear to be in poor condition History/ROS No significant history except as noted Pulmonary Sleep Apnea patient reports an event wiht every anesthetic and reports that she last required intubation during a procedure CV/HEM Atrial Fibrillation mitral valve prolapse None reported Hepatic None reported GI Gastroesophageal Reflux Disease Metabolic None reported Musc/skel None reported Neuropsych None reported Anesthetic Plan ASA status: 2 Anesthesia: General and MAC Risk of > 500 ml blood loss (7ml/kg in children): Yes, adequate IV access and fluids planned Medications/Allergies Home Medications Medication Instructions Recorded Confirmed Last Taken Type tramadol 50 mg tablet 50 mg PO QID PRN pain #90 tabs 05/18/23 08/09/23 08/10/23 Rx aspirin 81 mg tablet,delayed 81 mg PO DAILY 07/05/23 08/09/23 08/09/23 History release diphenhydramine HCl 50 mg capsule 50 mg PO DAILY PRN Allergy Symptoms 07/05/23 08/09/23 08/08/23 History loratadine 10 mg tablet (Claritin) 10 mg PO DAILY 07/05/23 08/09/23 08/10/23 History pantoprazole 40 mg tablet,delayed 40 mg PO BID 6 weeks #84 tabs 07/05/23 08/09/23 08/10/23 Rx release (Protonix) Allergies Allergy/AdvReac Type Severity Reaction Status Date / Time NSAIDS (Non-Steroidal Allergy Unknown Verified 08/09/23 11:31 Anti-Inflamma celecoxib [From Celebrex] AdvReac Severe chest pain Verified 08/09/23 11:31 meloxicam [From Mobic] AdvReac Severe edema Verified 08/09/23 11:31 Current Medications Generic Name Dose Route Start Last Admin Trade Name Freq PRN Reason Stop Dose Admin Sodium Chloride 1,000 mls @ 30 mls/hr 08/11/23 07:00 08/11/23 07:12 Sodium Chloride 0.9% IV 08/12/23 06:59 30 mls/hr .Q24H ALEXANDR Administration PFSH Anesthesia Medical History Breast cancer Surgical History No pertinent past surgical history Family History Grandfather Colon cancer Grandmother Uterine cancer Mother Hyperlipidemia Denies family history of Ovarian cancer Diabetes Heart disease Breast cancer Hypertension Thyroid disease Stroke Social History Smoking and tobacco/nicotine status: never used tobacco/nicotine Alcohol intake: current Alcohol intake frequency: holidays/special occasions only Data Anesthesia Cardiac Studies: No Data to Display
--- NOTE | 2023-08-11 08:03 | PM.HP ---
Providers/Chief Complaint Primary Care Provider: Mike Loza MD Chief Complaint: Z80.0, K21.9 History of Present Illness Miri Matos is a 72 year old female Review of Systems General: Reports: 10 or more systems reviewed and unremarkable except in HPI and below Medications/Allergies Home Medications Medication Instructions Recorded Confirmed Last Taken Type tramadol 50 mg tablet 50 mg PO QID PRN pain #90 tabs 05/18/23 08/09/23 08/10/23 Rx aspirin 81 mg tablet,delayed 81 mg PO DAILY 07/05/23 08/09/23 08/09/23 History release diphenhydramine HCl 50 mg capsule 50 mg PO DAILY PRN Allergy Symptoms 07/05/23 08/09/23 08/08/23 History loratadine 10 mg tablet (Claritin) 10 mg PO DAILY 07/05/23 08/09/23 08/10/23 History pantoprazole 40 mg tablet,delayed 40 mg PO BID 6 weeks #84 tabs 07/05/23 08/09/23 08/10/23 Rx release (Protonix) Allergies Allergy/AdvReac Type Severity Reaction Status Date / Time NSAIDS (Non-Steroidal Allergy Unknown Verified 08/09/23 11:31 Anti-Inflamma celecoxib [From Celebrex] AdvReac Severe chest pain Verified 08/09/23 11:31 meloxicam [From Mobic] AdvReac Severe edema Verified 08/09/23 11:31 PFSH Acute PFSH: Medical History Breast cancer Surgical History No pertinent past surgical history Family History Grandfather Colon cancer Grandmother Uterine cancer Mother Hyperlipidemia Denies family history of Ovarian cancer Diabetes Heart disease Breast cancer Hypertension Thyroid disease Stroke Social History Smoking and tobacco/nicotine status: never used tobacco/nicotine Alcohol intake: current Alcohol intake frequency: holidays/special occasions only Vitals/I&O/Wt Last Vital Signs Temp 97.9 F 08/11/23 07:05 Pulse 79 08/11/23 07:05 Resp 18 08/11/23 07:05 BP 162/93 08/11/23 07:05 Pulse Ox 100 08/11/23 07:05 O2 Del Method Room Air 08/11/23 07:05 Weight last 48 hrs Weight 190 lb A&P Assessment and plan (1) GERD (gastroesophageal reflux disease): (2) Hiatal hernia: (3) Colon cancer screening: Plan EGD and colonoscopy Attestations Medical Necessity Statement*: home Coding Level of Care Code Acute Code for g Fwd Diagnoses GERD (gastroesophageal reflux disease) K21.9 Hiatal hernia K44.9 Colon cancer screening Z12.11
[2023-08-11 08:34] VITALS: BP 105/74; PULSE 100; RESP 14; TEMP 36.9; O2SAT 96
[2023-08-11 08:46] VITALS: BP 110/63; PULSE 99; RESP 18; O2SAT 96
--- NOTE | 2023-08-11 10:40 | ANE.PACU2 ---
Inpatient post-anesthesia follow up: Airway intact: Yes Vital signs: Temperature 98.4 F Pulse Rate 99 Respiratory Rate 18 Blood Pressure 110/63 Pulse Oximetry 96 Oxygen Delivery Me thod Room Air Oxygen Flow Rate Fraction of Inspir ed Oxygen Hydration adequate: Yes Nausea and vomiting: No Pain level: 1 Mental status: Baseline
== END 2023-08-11 09:11 | disposition home or self-care (01) ==
PROVIDERS: PCP Family Medicine; Visit Provider Surgery
PROC: 0DJ08ZZ Inspection of Upper Intestinal Tract, Via Natural or Artificial Opening Endoscopic (ICD-10-PCS; CPT 43235; principal; 2023-08-11 08:00)
PROC: 0DJD8ZZ Inspection of Lower Intestinal Tract, Via Natural or Artificial Opening Endoscopic (ICD-10-PCS; CPT 45378; 2023-08-11 08:00)
DX: Z12.11 Encounter for screening for malignant neoplasm of colon (principal); K21.9 Gastro-esophageal reflux disease without esophagitis; K44.9 Diaphragmatic hernia without obstruction or gangrene; Z79.82 Long term (current) use of aspirin; K57.30 Diverticulosis of large intestine without perforation or abscess without bleeding; K64.8 Other hemorrhoids; G47.30 Sleep apnea, unspecified; I48.91 Unspecified atrial fibrillation; Z85.3 Personal history of malignant neoplasm of breast; K22.2 Esophageal obstruction
CPT/HCPCS: 43239; 43249; 88305; G0121; J2704; J3010; J3490; J7030

== ENCOUNTER → 2023-08-16 10:54 | Outpatient (BNVA) | payer MEDICARE, BC, SELFPAY | PROVIDERS: PCP Family Medicine; Visit Provider Nurse Practitioner Family | DX: Z09 Encounter for follow-up examination after completed treatment for conditions other than malignant neoplasm (principal); Z87.2 Personal history of diseases of the skin and subcutaneous tissue ==

== ENCOUNTER → 2023-09-02 11:25 | Outpatient (BNVA) | payer MEDICARE, BC, SELFPAY | PROVIDERS: PCP Family Medicine; Visit Provider Surgery | DX: Z09 Encounter for follow-up examination after completed treatment for conditions other than malignant neoplasm (principal); R03.0 Elevated blood-pressure reading, without diagnosis of hypertension; K21.9 Gastro-esophageal reflux disease without esophagitis; Z80.0 Family history of malignant neoplasm of digestive organs; K64.8 Other hemorrhoids; K57.90 Diverticulosis of intestine, part unspecified, without perforation or abscess without bleeding | CPT/HCPCS: 99214 ==

== ENCOUNTER → 2023-09-08 10:24 | Outpatient (BNVA) | payer MEDICARE, BC, SELFPAY | PROVIDERS: PCP Family Medicine; Visit Provider Nurse Practitioner Family | DX: L30.4 Erythema intertrigo (principal); L82.1 Other seborrheic keratosis; L81.4 Other melanin hyperpigmentation; D22.5 Melanocytic nevi of trunk | CPT/HCPCS: 99214 ==

== ENCOUNTER → 2023-11-03 10:42 | Outpatient (BNVA) | payer MEDICARE, BC, SELFPAY | PROVIDERS: PCP Family Medicine; Visit Provider Nurse Practitioner Family | DX: L30.4 Erythema intertrigo (principal); S80.922A Unspecified superficial injury of left lower leg, initial encounter; X58.XXXA Exposure to other specified factors, initial encounter; L97.829 Non-pressure chronic ulcer of other part of left lower leg with unspecified severity; L97.319 Non-pressure chronic ulcer of right ankle with unspecified severity; I87.2 Venous insufficiency (chronic) (peripheral) | CPT/HCPCS: 99214 ==

== ENCOUNTER 2024-05-03 12:28 | Outpatient (CLI) | payer MEDICARE, BC, SELFPAY ==
--- NOTE | 2024-05-03 12:45 | MM_ITS ---
WS: [id number] BILATERAL 3D TOMOSYNTHESIS DIGITAL DIAGNOSTIC MAMMOGRAPHY WITH CAD CLINICAL INFORMATION: hx of breast cancer HISTORY: Breast cancer. LEFT lumpectomy COMPARISON: 2022 TECHNIQUE: Bilateral CC, MLO, and ML views. FINDINGS: The breasts are composed of heterogeneous fibroglandular density, which can limit the detection of small underlying mass lesions. Few tiny punctate calcifications. No suspicious focal mass, asymmetry, calcifications, or architectural distortion. No evidence of malignancy. MM/MM diag tomosynthesis [id number] IMPRESSION: DENSITY: The breasts are heterogeneously dense, which may obscure small masses. BI-RADS: 2 - Benign FOLLOW UP: 1 Year Follow-up Recommend return to annual diagnostic mammography.
== END 2024-05-03 12:29 | disposition home or self-care (01) ==
LOC: RAD 12:29
PROVIDERS: PCP Family Medicine; Visit Provider Family Medicine
DX: C50.919 Malignant neoplasm of unspecified site of unspecified female breast (principal); R92.1 Mammographic calcification found on diagnostic imaging of breast; R92.333 Mammographic heterogeneous density, bilateral breasts; Z85.3 Personal history of malignant neoplasm of breast; Z98.890 Other specified postprocedural states
CPT/HCPCS: 77062; G0279

== ENCOUNTER → 2024-05-11 08:42 | Outpatient (BNVA) | payer MEDICARE, BC, SELFPAY | PROVIDERS: PCP Family Medicine; Visit Provider Family Medicine | DX: R25.2 Cramp and spasm (principal); E78.5 Hyperlipidemia, unspecified | CPT/HCPCS: 80053; 80061; 83735; 85025 ==

== ENCOUNTER → 2024-05-23 13:01 | Outpatient (BNVA) | payer MEDICARE, BC, SELFPAY | PROVIDERS: PCP Family Medicine; Visit Provider Thoracic Surgery (Cardiothoracic Vascular Surgery) | DX: I73.9 Peripheral vascular disease, unspecified (principal); L97.822 Non-pressure chronic ulcer of other part of left lower leg with fat layer exposed | CPT/HCPCS: 11042; 99203; A6248 ==

== ENCOUNTER → 2024-05-30 13:44 | Outpatient (BNVA) | payer MEDICARE, BC, SELFPAY | PROVIDERS: PCP Family Medicine; Visit Provider Thoracic Surgery (Cardiothoracic Vascular Surgery) | DX: I73.9 Peripheral vascular disease, unspecified (principal); L97.822 Non-pressure chronic ulcer of other part of left lower leg with fat layer exposed | CPT/HCPCS: 97597 ==

== ENCOUNTER → 2024-06-06 10:42 | Outpatient (BNVA) | payer MEDICARE, BC, SELFPAY | PROVIDERS: PCP Family Medicine | DX: I73.9 Peripheral vascular disease, unspecified (principal); L97.822 Non-pressure chronic ulcer of other part of left lower leg with fat layer exposed | CPT/HCPCS: 11042 ==

== ENCOUNTER → 2024-06-13 14:02 | Outpatient (BNVA) | payer MEDICARE, BC, SELFPAY | PROVIDERS: PCP Family Medicine; Visit Provider Thoracic Surgery (Cardiothoracic Vascular Surgery) | DX: I73.9 Peripheral vascular disease, unspecified (principal); L97.821 Non-pressure chronic ulcer of other part of left lower leg limited to breakdown of skin | CPT/HCPCS: 97597 ==

== ENCOUNTER → 2024-06-20 11:01 | Outpatient (BNVA) | payer MEDICARE, BC, SELFPAY | PROVIDERS: PCP Family Medicine; Visit Provider Thoracic Surgery (Cardiothoracic Vascular Surgery) | DX: I73.9 Peripheral vascular disease, unspecified (principal); L97.821 Non-pressure chronic ulcer of other part of left lower leg limited to breakdown of skin | CPT/HCPCS: 97597; A6210 ==

== ENCOUNTER 2024-06-27 09:07 | Outpatient (CLI) | payer MEDICARE, BC, SELFPAY ==
--- NOTE | 2024-06-27 09:30 | USR_ITS ---
PROCEDURE INFORMATION: Exam: US Duplex Left Lower Extremity Veins, Limited Exam date and time: 06/27/2024 9:41 AM Age: 73 years old Clinical indication: Other: Ulcer-left calf; Additional info: S81.186n - unspecified open wound, left lower leg, initia. . . TECHNIQUE: Imaging protocol: Real-time duplex ultrasound of the left extremity with 2-D upton scale, color Doppler flow and spectral waveform analysis including responses to compression and other maneuvers (when performed) with image documentation. Limited exam focused on the left lower extremity veins. COMPARISON: No relevant prior studies available. FINDINGS: Left deep veins: Unremarkable. The common femoral, femoral, proximal profunda femoral and popliteal veins are patent without thrombus. Normal Doppler waveforms. Normal compressibility and/or augmentation response. Superficial veins: Greater saphenous vein at the saphenofemoral junction is patent without thrombus. Soft tissues: Unremarkable. Reflux into the left common femoral vein 1.3 seconds, left femoral vein 1.71 seconds, left popliteal vein 2.37 seconds. [facility] [id number] IMPRESSION: No evidence of deep vein thrombosis.
== END 2024-06-27 09:08 | disposition home or self-care (01) ==
LOC: RAD 09:08
PROVIDERS: PCP Family Medicine; Visit Provider Thoracic Surgery (Cardiothoracic Vascular Surgery)
DX: S81.802A Unspecified open wound, left lower leg, initial encounter (principal); R52 Pain, unspecified; X58.XXXA Exposure to other specified factors, initial encounter
CPT/HCPCS: 93971

== ENCOUNTER → 2024-06-28 10:20 | Outpatient (BNVA) | payer MEDICARE, BC, SELFPAY | PROVIDERS: PCP Family Medicine; Visit Provider Thoracic Surgery (Cardiothoracic Vascular Surgery) | DX: I73.9 Peripheral vascular disease, unspecified (principal); L97.821 Non-pressure chronic ulcer of other part of left lower leg limited to breakdown of skin | CPT/HCPCS: 97597; A6021; A6251 ==

== ENCOUNTER → 2024-06-30 09:37 | Outpatient (BNVA) | payer MEDICARE, BC, SELFPAY | PROVIDERS: PCP Family Medicine; Visit Provider Thoracic Surgery (Cardiothoracic Vascular Surgery) | DX: I87.312 Chronic venous hypertension (idiopathic) with ulcer of left lower extremity (principal); L97.821 Non-pressure chronic ulcer of other part of left lower leg limited to breakdown of skin | CPT/HCPCS: 29581; A6021; A6252 ==

== ENCOUNTER → 2024-07-05 10:07 | Outpatient (BNVA) | payer MEDICARE, BC, SELFPAY | PROVIDERS: PCP Family Medicine | DX: I73.9 Peripheral vascular disease, unspecified (principal); L97.821 Non-pressure chronic ulcer of other part of left lower leg limited to breakdown of skin | CPT/HCPCS: 29581; 97597; A6197; A6251 ==

== ENCOUNTER → 2024-07-07 10:04 | Outpatient (BNVA) | payer MEDICARE, BC, SELFPAY | PROVIDERS: PCP Family Medicine; Visit Provider Thoracic Surgery (Cardiothoracic Vascular Surgery) | DX: I87.312 Chronic venous hypertension (idiopathic) with ulcer of left lower extremity (principal) | CPT/HCPCS: 29581; A6197; A6252 ==

== ENCOUNTER → 2024-07-12 09:11 | Outpatient (BNVA) | payer MEDICARE, BC, SELFPAY | PROVIDERS: PCP Family Medicine | DX: I73.9 Peripheral vascular disease, unspecified (principal); L97.822 Non-pressure chronic ulcer of other part of left lower leg with fat layer exposed | CPT/HCPCS: 11042; A6197; A6251 ==

== ENCOUNTER → 2024-07-14 10:56 | Outpatient (BNVA) | payer MEDICARE, BC, SELFPAY | PROVIDERS: PCP Family Medicine; Visit Provider Thoracic Surgery (Cardiothoracic Vascular Surgery) | DX: I87.312 Chronic venous hypertension (idiopathic) with ulcer of left lower extremity (principal) | CPT/HCPCS: 29581; A6197; A6252 ==

== ENCOUNTER → 2024-07-20 08:53 | Outpatient (BNVA) | payer MEDICARE, BC, SELFPAY | PROVIDERS: PCP Family Medicine; Visit Provider Thoracic Surgery (Cardiothoracic Vascular Surgery) | DX: I73.9 Peripheral vascular disease, unspecified (principal); L97.821 Non-pressure chronic ulcer of other part of left lower leg limited to breakdown of skin | CPT/HCPCS: 97597; A6197; A6210 ==

== ENCOUNTER → 2024-07-27 10:17 | Outpatient (BNVA) | payer MEDICARE, BC, SELFPAY | PROVIDERS: PCP Family Medicine; Visit Provider Thoracic Surgery (Cardiothoracic Vascular Surgery) | DX: I73.9 Peripheral vascular disease, unspecified (principal); L97.821 Non-pressure chronic ulcer of other part of left lower leg limited to breakdown of skin | CPT/HCPCS: 97597 ==

== ENCOUNTER → 2024-08-03 10:24 | Outpatient (BNVA) | payer MEDICARE, BC, SELFPAY | PROVIDERS: PCP Family Medicine | DX: I73.9 Peripheral vascular disease, unspecified (principal); L97.821 Non-pressure chronic ulcer of other part of left lower leg limited to breakdown of skin | CPT/HCPCS: 97597 ==

== ENCOUNTER → 2024-08-10 10:22 | Outpatient (BNVA) | payer MEDICARE, BC, SELFPAY | PROVIDERS: PCP Family Medicine | DX: I73.9 Peripheral vascular disease, unspecified (principal); L97.821 Non-pressure chronic ulcer of other part of left lower leg limited to breakdown of skin | CPT/HCPCS: 97597 ==

== ENCOUNTER → 2024-08-17 10:20 | Outpatient (BNVA) | payer MEDICARE, BC, SELFPAY | PROVIDERS: PCP Family Medicine | DX: I73.9 Peripheral vascular disease, unspecified (principal); L97.821 Non-pressure chronic ulcer of other part of left lower leg limited to breakdown of skin; I87.2 Venous insufficiency (chronic) (peripheral); L97.311 Non-pressure chronic ulcer of right ankle limited to breakdown of skin | CPT/HCPCS: 97597 ==

== ENCOUNTER → 2024-08-24 10:23 | Outpatient (BNVA) | payer MEDICARE, BC, SELFPAY | PROVIDERS: PCP Family Medicine; Visit Provider Thoracic Surgery (Cardiothoracic Vascular Surgery) | DX: I73.9 Peripheral vascular disease, unspecified (principal); L97.821 Non-pressure chronic ulcer of other part of left lower leg limited to breakdown of skin; Z09 Encounter for follow-up examination after completed treatment for conditions other than malignant neoplasm | CPT/HCPCS: 97597 ==

== ENCOUNTER → 2024-08-31 14:07 | Outpatient (BNVA) | payer MEDICARE, BC, SELFPAY | PROVIDERS: PCP Family Medicine; Visit Provider Thoracic Surgery (Cardiothoracic Vascular Surgery) | DX: I73.9 Peripheral vascular disease, unspecified (principal); L97.821 Non-pressure chronic ulcer of other part of left lower leg limited to breakdown of skin | CPT/HCPCS: 97597 ==

== ENCOUNTER → 2024-09-13 13:46 | Outpatient (BNVA) | payer MEDICARE, BC, SELFPAY | PROVIDERS: PCP Family Medicine; Visit Provider Thoracic Surgery (Cardiothoracic Vascular Surgery) | DX: I73.9 Peripheral vascular disease, unspecified (principal); L97.821 Non-pressure chronic ulcer of other part of left lower leg limited to breakdown of skin | CPT/HCPCS: 97597 ==

== ENCOUNTER → 2024-10-05 14:51 | Outpatient (BNVA) | payer MEDICARE, BC, SELFPAY | PROVIDERS: PCP Family Medicine; Visit Provider Internal Medicine Cardiovascular Disease | DX: I87.2 Venous insufficiency (chronic) (peripheral) (principal); I48.91 Unspecified atrial fibrillation; Z79.82 Long term (current) use of aspirin; R07.9 Chest pain, unspecified | CPT/HCPCS: 93005; 99204 ==

== ENCOUNTER → 2024-11-03 13:57 | Outpatient (BNVA) | payer MEDICARE, BC, SELFPAY | PROVIDERS: PCP Family Medicine; Visit Provider Nurse Practitioner Family | DX: S60.912A Unspecified superficial injury of left wrist, initial encounter (principal); X58.XXXA Exposure to other specified factors, initial encounter; B07.0 Plantar wart; L82.1 Other seborrheic keratosis; I87.2 Venous insufficiency (chronic) (peripheral); D48.5 Neoplasm of uncertain behavior of skin; L57.0 Actinic keratosis | CPT/HCPCS: 11102; 17000; 99213 ==

== ENCOUNTER 2024-11-14 09:49 | Outpatient (CLI) | payer MEDICARE, BC, SELFPAY ==
--- NOTE | 2024-11-14 09:55 | XR_ITS ---
WS: [id number] Exam: XR shoulder RT min 2V* [id number] Date/Time of Exam: 11/14/2024 10:18 AM Reason For Exam: shoulder pain DLP: Comparison 05/29/2021. No fracture noted. Mild degenerative change of the AC joint and glenohumeral joint. Normal soft tissues. No change. XR/XR shoulder RT min 2V* [id number] IMPRESSION: 1. Mild degenerative changes.
== END 2024-11-14 09:50 | disposition home or self-care (01) ==
PROVIDERS: PCP Family Medicine; Visit Provider Family Medicine
DX: M25.511 Pain in right shoulder (principal)
CPT/HCPCS: 73030